=== PATIENT | male | born 1980 | race African-American/Black ===

== ENCOUNTER 2017-11-11 11:29 | Emergency (ER) | payer OTHER ==
[2017-11-11 12:18] LABS: APPEARANCE,URINE Clear (CLEAR); BILIRUBIN,URINE Negative (NEGATIVE); COLOR,URINE Yellow (YELLOW); GLUCOSE, URINE (UA) Negative (NEGATIVE); KETONES,URINE Negative (NEGATIVE); LEUKOCYTE ESTERASE ,URINE Trace (NEGATIVE); NITRATE,URINE Negative (NEGATIVE); OCCULT BLOOD,URINE Trace (NEGATIVE); PH,URINE 6.5 (5.0-8.0); PROTEIN,URINE Negative (NEGATIVE)
[2017-11-11] MEDS ORDERED: CEFTRIAXONE SODIUM 1 GM ONE (12:21)
[2017-11-11] MEDS ORDERED: ONDANSETRON ODT 4 MG TAB ONE (12:21)
[2017-11-11] MEDS ORDERED: LIDOCAINE HCL-MPF 1% 2ML VIAL ONE (12:21)
[2017-11-11] MEDS ORDERED: MORPHINE SULFATE 4 MG/1ML SYG ONE (12:22)
[2017-11-11 12:39] LABS: BACTERIA,URINE Rare /HPF (None Seen); RBC,URINE None Seen /HPF (0-1); SQUAMOUS EPITHELIAL CELL,UR 0-2 /LPF (0-2); WBC,URINE 0-1 /HPF (0-1)
== END 2017-11-11 14:06 | disposition home or self-care (01) ==
LOC: EDH 11:29
DX: R59.0 Localized enlarged lymph nodes (principal); Z98.890 Other specified postprocedural states; Z72.0 Tobacco use
CPT/HCPCS: 76882; 81001; 96372 ×2; 99285; J0696; J2270; J3490

== ENCOUNTER 2017-11-13 08:09 | Inpatient (IN) | payer OTHER ==
[~2017-11-13] VITALS: Ht 167.6 cm; Wt 84.4 kg
[2017-11-13] MEDS ORDERED: MORPHINE SULFATE 4 MG/1ML SYG ONE (09:17)
[2017-11-13 09:51] LABS: APPEARANCE,URINE CLEAR (CLEAR); BILIRUBIN,URINE NEGATIVE (NEGATIVE); GLUCOSE, URINE (UA) NEGATIVE (NEGATIVE); KETONES,URINE NEGATIVE (NEGATIVE); LEUKOCYTE ESTERASE ,URINE SMALL (NEGATIVE); NITRATE,URINE NEGATIVE (NEGATIVE); OCCULT BLOOD,URINE SMALL (NEGATIVE); PROTEIN,URINE NEGATIVE (NEGATIVE); UROBILINOGEN,URINE 0.2 mg/dL (0.2-1.0)
[2017-11-13 09:55] LABS: COLOR,URINE STRAW (YELLOW)
[2017-11-13 09:56] LABS: BASOPHILS % (AUTO) 0.7 % (0.0-5.0); EOSINOPHILS % (AUTO) 4.1 % (0.0-8.0); HEMATOCRIT 36.9 % (42-54); LYMPHOCYTES % (AUTO) 11.7 % (21.0-51.0); MEAN CORPUSCULAR HEMOGLOBIN 30.9 pg (27.0-33.0); MEAN CORPUSCULAR HGB CONC 34.2 g/dL (32.0-36.0); MEAN CORPUSCULAR VOLUME 90.5 fL (79-99); MONOCYTES % (AUTO) 11.6 % (3.0-13.0); NEUTROPHILS % (AUTO) 71.9 % (40.0-77.0); PLATELET COUNT (AUTO) 357 K/uL (130-400); RED BLOOD CELL COUNT(AUTO) 4.08 MIL/uL (4.50-6.20); WHITE BLOOD COUNT (AUTO) 17.5 K/uL (4.8-10.8)
[2017-11-13 10:01] LABS: BACTERIA,URINE None Seen /HPF (None Seen); RBC,URINE 0-1 /HPF (0-1); SQUAMOUS EPITHELIAL CELL,UR Rare /LPF (0-2); WBC,URINE None Seen /HPF (0-1)
[2017-11-13 10:05] LABS: POTASSIUM 4.3 mmol/L (3.5-5.1)
[2017-11-13 10:09] LABS: BILIRUBIN,TOTAL 0.2 mg/dL (0.2-1.0); TOTAL PROTEIN, SERUM 7.6 g/dL (6.0-8.3)
[2017-11-13] MEDS ORDERED: VANCOMYCIN 1GM+NS 250ML 250 ML IV ONE (10:24)
[2017-11-13] MEDS ORDERED: KETOROLAC TROMETHAMINE 30MG/ML ONE (11:05)
[2017-11-13] MEDS ORDERED: CLINDAMYCIN 600 MG/D5% WATER 50 ML IV ONE (12:54)
[2017-11-13] MEDS ORDERED: ACETAMINOPHEN 325 MG TAB ONE (12:55)
[2017-11-13 14:49] VITALS: BP 102/52
[2017-11-13] MEDS ORDERED: MIRT7.5T11 PO (15:51)
[2017-11-13] MEDS ORDERED: DICL1TAB5 PO (15:51)
[2017-11-13] MEDS ORDERED: SULF1TAB42 PO (15:51)
[2017-11-13] MEDS ORDERED: ESCI20TA36 PO (15:51)
[2017-11-13 16:00] VITALS: BP 101/64
[2017-11-13] MEDS ORDERED: VANCOMYCIN 1GM+NS 250ML 250 ML IV SCH (17:15)
[2017-11-13] MEDS ORDERED: ONDANSETRON HCL MDV 20ML 2 MG/ML VIAL IV PRN (17:15)
[2017-11-13] MEDS ORDERED: HYDRALAZINE HCL 20 MG/ML VIAL IV PRN (17:15)
[2017-11-13] MEDS ORDERED: VANCOMYCIN PROTOCOL PER PHARMACY IV PRN (17:15)
[2017-11-13] MEDS ORDERED: DIPHENHYDRAMINE HCL 25 MG CAPSULE PO PRN (17:15)
[2017-11-13] MEDS ORDERED: ACETAMINOPHEN 325 MG TAB PO PRN (17:15)
[2017-11-13] MEDS ORDERED: LACTULOSE 20 GM/30 ML UDCUP PO PRN (17:15)
[2017-11-13] MEDS ORDERED: MEROPENEM 500MG+NS 50ML 50 ML IV SCH (17:15)
[2017-11-13] MEDS ORDERED: COMPOUND IV REFRIGERATED 1 EACH IVSOLN MISC PRN (17:45)
[2017-11-13] MEDS ORDERED: VANCOMYCIN PROTOCOL PER PHARMACY IV SCH (17:45)
[2017-11-13] MEDS: MORPHINE SULFATE 2 MG/ML 1ML SYG IV PRN (18:09)
[2017-11-13] MEDS: MEROPENEM 500 MG VIAL IVP SCH (18:09)
[2017-11-13] MEDS: SODIUM CHLORIDE 0.9% 1000ML 1,000 ML IV SCH (18:13)
[2017-11-13] MEDS: NICOTINE 14 MG/ 24 HR PATCH TD SCH (18:26)
[2017-11-13 19:00] VITALS: BP 115/43
[2017-11-13] MEDS: MIRTAZAPINE 15 MG TABLET PO SCH (21:17)
[2017-11-13] MEDS: CITALOPRAM 20 MG TABLET PO SCH (21:17)
[2017-11-13] MEDS: VANCOMYCIN 1.25 GM in SODIUM CHLORIDE 0.9% 250 ML IV SCH (21:18)
[2017-11-13 23:00] VITALS: BP 106/58
[2017-11-14] MEDS: MEROPENEM 500 MG VIAL IVP SCH ×3 (02:00→20:55)
[2017-11-14 03:00] VITALS: BP 113/65
[2017-11-14] MEDS: SODIUM CHLORIDE 0.9% 1000ML 1,000 ML IV SCH ×3 (03:03→11:31)
[2017-11-14] MEDS: MORPHINE SULFATE 2 MG/ML 1ML SYG IV PRN ×2 (04:31→09:57)
[2017-11-14 08:00] VITALS: BP 105/48
[2017-11-14] MEDS: PANTOPRAZOLE SODIUM 40 MG TABLET.DR PO SCH (08:40)
[2017-11-14] MEDS: CITALOPRAM 20 MG TABLET PO SCH ×2 (08:40→20:33)
[2017-11-14] MEDS: NICOTINE 14 MG/ 24 HR PATCH TD SCH (08:41)
[2017-11-14] MEDS: ENOXAPARIN SODIUM 40 MG/0.4 ML SYRINGE SQ SCH (08:42)
[2017-11-14] MEDS: VANCOMYCIN 1.25 GM in SODIUM CHLORIDE 0.9% 250 ML IV SCH ×2 (08:49→20:31)
[2017-11-14 12:00] VITALS: BP 85/42
[2017-11-14] MEDS ORDERED: NITROGLYCERIN 0.4 MG SL TAB SL PRN (12:30)
[2017-11-14 12:46] LABS: CREATINE KINASE MB < 0.5 ng/mL (0.5-3.6); CREATINE KINASE, TOTAL 178 U/L (21-232); MYOGLOBIN 17 ng/mL (10-92); TROPONIN I < 0.04 ng/mL (0.00-0.06)
[2017-11-14 12:51] LABS: MEAN CORPUSCULAR HEMOGLOBIN 30.6 pg (27.0-33.0); MEAN CORPUSCULAR HGB CONC 33.7 g/dL (32.0-36.0); MEAN CORPUSCULAR VOLUME 90.7 fL (79-99); NUCLEATED RED BLOOD CELLS 0.1 % (0.0-0.19); PLATELET COUNT (AUTO) 404 K/uL (130-400); RED BLOOD CELL COUNT(AUTO) 4.08 MIL/uL (4.50-6.20); RED CELL DISTRIBUTION WIDTH 13.5 % (11.0-15.5); WHITE BLOOD COUNT (AUTO) 16.5 K/uL (4.8-10.8)
[2017-11-14] MEDS: KETOROLAC TROMETHAMINE 30MG/ML IV PRN ×2 (14:55→20:56)
[2017-11-14 16:00] VITALS: BP 115/65
[2017-11-14] MEDS: ACETAMINOPHEN-CODEINE 300/30MG TAB PO PRN (16:37)
[2017-11-14] MEDS ORDERED: IOPAMIDOL-370 75 ML VIAL IV ONE (17:00)
[2017-11-14] MEDS ORDERED: DIATR MEGLU/DIATRIZOATE SODIUM 30 ML BOTTLE ONE (17:00)
[2017-11-14 18:06] LABS: CREATINE KINASE MB < 0.5 ng/mL (0.5-3.6); CREATINE KINASE, TOTAL 110 U/L (21-232); MYOGLOBIN 23 ng/mL (10-92); TROPONIN I < 0.04 ng/mL (0.00-0.06)
[2017-11-14 19:00] VITALS: BP 119/86
[2017-11-14] MEDS: MIRTAZAPINE 15 MG TABLET PO SCH (20:32)
[2017-11-14 23:00] VITALS: BP 113/65
[2017-11-15 00:39] LABS: CREATINE KINASE MB < 0.5 ng/mL (0.5-3.6); CREATINE KINASE, TOTAL 111 U/L (21-232); MYOGLOBIN 18 ng/mL (10-92); TROPONIN I < 0.04 ng/mL (0.00-0.06)
[2017-11-15] MEDS: MEROPENEM 500 MG VIAL IVP SCH ×3 (02:56→18:14)
[2017-11-15] MEDS: KETOROLAC TROMETHAMINE 30MG/ML IV PRN ×3 (02:57→20:58)
[2017-11-15 03:00] VITALS: BP 100/48
[2017-11-15 05:58] LABS: HEMATOCRIT 34.8 % (42-54); MEAN CORPUSCULAR HEMOGLOBIN 30.6 pg (27.0-33.0); MEAN CORPUSCULAR HGB CONC 34.2 g/dL (32.0-36.0); MEAN CORPUSCULAR VOLUME 89.6 fL (79-99); PLATELET COUNT (AUTO) 410 K/uL (130-400); RED BLOOD CELL COUNT(AUTO) 3.88 MIL/uL (4.50-6.20); RED CELL DISTRIBUTION WIDTH 13.2 % (11.0-15.5); WHITE BLOOD COUNT (AUTO) 12.8 K/uL (4.8-10.8)
[2017-11-15 06:05] LABS: CREATININE 0.9 mg/dL (0.5-1.5); POTASSIUM 4.1 mmol/L (3.5-5.1)
[2017-11-15 08:00] VITALS: BP 107/55
[2017-11-15] MEDS: ENOXAPARIN SODIUM 40 MG/0.4 ML SYRINGE SQ SCH (09:00)
[2017-11-15] MEDS: PANTOPRAZOLE SODIUM 40 MG TABLET.DR PO SCH (09:17)
[2017-11-15] MEDS: VANCOMYCIN 1.25 GM in SODIUM CHLORIDE 0.9% 250 ML IV SCH (09:17)
[2017-11-15] MEDS: CITALOPRAM 20 MG TABLET PO SCH ×2 (09:17→20:19)
[2017-11-15] MEDS: NICOTINE 14 MG/ 24 HR PATCH TD SCH (09:18)
[2017-11-15] MEDS: ACETAMINOPHEN-CODEINE 300/30MG TAB PO PRN ×2 (09:23→18:15)
[2017-11-15 11:11] LABS: HEPATITIS A ANTIBODY IGM Negative (Negative); HEPATITIS B CORE IGM Negative (Negative); HEPATITIS Bs ANTIGEN SCREEN P Negative (Negative)
[2017-11-15 12:00] VITALS: BP 118/69
[2017-11-15 16:00] VITALS: BP 136/68
[2017-11-15 19:00] VITALS: BP 134/81
[2017-11-15] MEDS: MIRTAZAPINE 15 MG TABLET PO SCH (20:19)
[2017-11-15] MEDS: VANCOMYCIN 1.5 GM in SODIUM CHLORIDE 0.9% 250 ML IV SCH (20:57)
[2017-11-15 23:00] VITALS: BP 107/54
[2017-11-16] MEDS: MEROPENEM 500 MG VIAL IVP SCH ×3 (02:57→13:09)
[2017-11-16] MEDS: KETOROLAC TROMETHAMINE 30MG/ML IV PRN ×2 (02:57→09:15)
[2017-11-16 03:00] VITALS: BP 132/82
[2017-11-16 05:58] LABS: HEMATOCRIT 34.5 % (42-54); MEAN CORPUSCULAR HEMOGLOBIN 30.5 pg (27.0-33.0); MEAN CORPUSCULAR VOLUME 89.6 fL (79-99); PLATELET COUNT (AUTO) 421 K/uL (130-400); RED BLOOD CELL COUNT(AUTO) 3.85 MIL/uL (4.50-6.20); RED CELL DISTRIBUTION WIDTH 13.2 % (11.0-15.5)
[2017-11-16 06:07] LABS: POTASSIUM 4.1 mmol/L (3.5-5.1)
[2017-11-16 08:00] VITALS: BP 113/59
[2017-11-16] MEDS: NICOTINE 14 MG/ 24 HR PATCH TD SCH (09:00)
[2017-11-16] MEDS: ENOXAPARIN SODIUM 40 MG/0.4 ML SYRINGE SQ SCH (09:00)
[2017-11-16] MEDS: CITALOPRAM 20 MG TABLET PO SCH (09:15)
[2017-11-16] MEDS: VANCOMYCIN 1.5 GM in SODIUM CHLORIDE 0.9% 250 ML IV SCH (09:16)
[2017-11-16] MEDS: PANTOPRAZOLE SODIUM 40 MG TABLET.DR PO SCH (09:17)
[2017-11-16 11:00] VITALS: BP 104/76
[2017-11-16] MEDS: ACETAMINOPHEN-CODEINE 300/30MG TAB PO PRN (13:09)
[2017-11-16 16:00] VITALS: BP 123/82
[2017-11-16] MEDS ORDERED: DOXY100C2 PO (17:18)
[2017-11-16] MEDS ORDERED: ACET1TAB12 PO (17:18)
[2017-11-16] MEDS ORDERED: AMOX-426 PO (17:18)
== END 2017-11-16 18:05 | disposition home or self-care (01) | DRG 603 ==
LOC: EDH 08:09 → EDHIP 08:10 → 3BH 14:31
PROVIDERS: ADMIT Family Medicine; ATTEND Family Medicine
DX: L03.115 Cellulitis of right lower limb (principal); E11.9 Type 2 diabetes mellitus without complications; F10.10 Alcohol abuse, uncomplicated; F14.10 Cocaine abuse, uncomplicated; R59.0 Localized enlarged lymph nodes; F19.90 Other psychoactive substance use, unspecified, uncomplicated; F17.210 Nicotine dependence, cigarettes, uncomplicated; F32.9 Major depressive disorder, single episode, unspecified; Z83.3 Family history of diabetes mellitus
CPT/HCPCS: 36415; 74178; 80048; 80053; 80074; 80202; 81001; 82550; 82553; 83874; 84484; 85025; 85027; 86000; 86701; 87040; 87390; 93005; A4218; J1650; J1885; J2185; J2270; J3370; J3490; J7030; Q9963; Q9967

== ENCOUNTER 2018-02-08 11:42 | Inpatient (IN) | payer OTHER ==
[~2018-02-08] VITALS: Ht 167.6 cm; Wt 86.6 kg
[~2018-02-08 11:42] MED LIST: ACET1TAB12 PO; AMOX-426 PO; DICL1TAB5 PO; DOXY100C2 PO; ESCI20TA36 PO; MIRT7.5T11 PO
[2018-02-08 12:21] LABS: BASOPHILS % (AUTO) 0.7 % (0.0-5.0); EOSINOPHILS % (AUTO) 4.1 % (0.0-8.0); HEMATOCRIT 42.5 % (42-54); LYMPHOCYTES % (AUTO) 17.9 % (21.0-51.0); MEAN CORPUSCULAR HEMOGLOBIN 30.1 pg (27.0-33.0); MEAN CORPUSCULAR HGB CONC 33.9 g/dL (32.0-36.0); MEAN CORPUSCULAR VOLUME 88.6 fL (79-99); MONOCYTES % (AUTO) 7.7 % (3.0-13.0); NEUTROPHILS % (AUTO) 69.6 % (40.0-77.0); PLATELET COUNT (AUTO) 414 K/uL (130-400); RED BLOOD CELL COUNT(AUTO) 4.79 MIL/uL (4.50-6.20); RED CELL DISTRIBUTION WIDTH 14.8 % (11.0-15.5); WHITE BLOOD COUNT (AUTO) 17.3 K/uL (4.8-10.8)
[2018-02-08 12:23] LABS: APPEARANCE,URINE Clear (CLEAR); BILIRUBIN,URINE Negative (NEGATIVE); COLOR,URINE Yellow (YELLOW); GLUCOSE, URINE (UA) Negative (NEGATIVE); KETONES,URINE Negative (NEGATIVE); LEUKOCYTE ESTERASE ,URINE Trace (NEGATIVE); NITRATE,URINE Negative (NEGATIVE); OCCULT BLOOD,URINE Negative (NEGATIVE); PROTEIN,URINE Negative (NEGATIVE); UROBILINOGEN,URINE 0.2 mg/dL (0.2-1.0)
[2018-02-08 12:30] LABS: CARBON DIOXIDE 32 mmol/L (21-32); CHLORIDE 102 mmol/L (101-111); CREATININE 1.1 mg/dL (0.5-1.5); GLOMERULAR FILTR. RATE CALC 97 mL/min (>60); GLUCOSE,RANDOM 95 mg/dL (70-105); POTASSIUM 3.8 mmol/L (3.5-5.1); SODIUM SERUM 140 mmol/L (136-145); UREA NITROGEN, BLOOD 10 mg/dL (7-18)
[2018-02-08 12:30] LABS: AMPHET/METH SCREEN,URINE POSITIVE (NEGATIVE); BARBITURATE SCREEN, URINE NEGATIVE (NEGATIVE); BENZODIAZEPINES SCREEN,URINE NEGATIVE (NEGATIVE); CANNABINOID SCREEN,URINE NEGATIVE (NEGATIVE); COCAINE SCREEN,URINE POSITIVE (NEGATIVE); OPIATE SCREEN,URINE NEGATIVE (NEGATIVE); PHENCYCLIDINE SCREEN,URINE NEGATIVE (NEGATIVE)
[2018-02-08 12:34] LABS: ALANINE AMINOTRANSFERASE 36 U/L (12-78); ALBUMIN 3.6 g/dL (3.5-5.0); ASPARTATE AMINOTRANSFERASE 33 U/L (10-37); BILIRUBIN,TOTAL 0.2 mg/dL (0.2-1.0); TOTAL PROTEIN, SERUM 7.9 g/dL (6.0-8.3)
[2018-02-08 12:53] LABS: ACETAMINOPHEN < 1 mcg/mL (10-29); ALCOHOL, BLOOD < 3 mg/dL (0-10)
[2018-02-08 13:20] LABS: BACTERIA,URINE Rare /HPF (None Seen); RBC,URINE 0-1 /HPF (0-1); SQUAMOUS EPITHELIAL CELL,UR Rare /HPF (0-2); WBC,URINE 0-1 /HPF (0-1)
[2018-02-08 14:30] LABS: BASOPHILS % (AUTO) 0.8 % (0.0-5.0); EOSINOPHILS % (AUTO) 4.7 % (0.0-8.0); LYMPHOCYTES % (AUTO) 16.6 % (21.0-51.0); MEAN CORPUSCULAR HEMOGLOBIN 30.2 pg (27.0-33.0); MEAN CORPUSCULAR HGB CONC 33.7 g/dL (32.0-36.0); MEAN CORPUSCULAR VOLUME 89.4 fL (79-99); MONOCYTES % (AUTO) 6.9 % (3.0-13.0); PLATELET COUNT (AUTO) 429 K/uL (130-400); RED BLOOD CELL COUNT(AUTO) 4.92 MIL/uL (4.50-6.20); RED CELL DISTRIBUTION WIDTH 14.8 % (11.0-15.5); WHITE BLOOD COUNT (AUTO) 16.9 K/uL (4.8-10.8)
[2018-02-08] MEDS ORDERED: IPRATROPIUM/ALBUTEROL SULFATE 3 ML SOLUTION IH ONE (14:30)
[2018-02-08] MEDS ORDERED: CEFTRIAXONE SODIUM 1 GM ONE (15:22)
[2018-02-08] MEDS ORDERED: AZITHROMYCIN 250 MG TABLET PO ONE (15:23)
[2018-02-08 19:37] VITALS: BP 129/85
[2018-02-08] MEDS ORDERED: QUET100T PO (20:40)
[2018-02-08] MEDS ORDERED: PRAZ1CAP5 PO (20:40)
[2018-02-08] MEDS ORDERED: CEFTRIAXONE SODIUM 1 GM IVP SCH (21:00)
[2018-02-08] MEDS ORDERED: IPRATROPIUM/ALBUTEROL SULFATE 3 ML SOLUTION IH PRN (21:00)
[2018-02-08] MEDS ORDERED: ACETAMINOPHEN 325 MG TAB PO PRN (21:00)
[2018-02-08] MEDS ORDERED: AZITHROMYCIN 500MG+NS 250ML 250 ML IV SCH (21:00)
[2018-02-08] MEDS ORDERED: CEFTRIAXONE 1GM/D5W 50ML 50 ML IV SCH (21:00)
[2018-02-08] MEDS: FAMOTIDINE/PF 20 MG/2 ML VIAL IV SCH (21:30)
[2018-02-08] MEDS ORDERED: LACTATED RINGERS 1000ML 1,000 ML IV SCH ×2 (21:58→22:00)
[2018-02-08] MEDS ORDERED: LACTATED RINGERS 1000ML 1,000 ML IV ONE (22:23)
[2018-02-08] MEDS: GUAIFENESIN-DM 200/20 MG 10 ML PO PRN (22:27)
[2018-02-08 23:43] VITALS: BP 118/74
[2018-02-09 03:47] VITALS: BP 108/64
[2018-02-09 06:04] LABS: HEMATOCRIT 39.6 % (42-54); MEAN CORPUSCULAR HEMOGLOBIN 30.1 pg (27.0-33.0); MEAN CORPUSCULAR VOLUME 88.6 fL (79-99); PLATELET COUNT (AUTO) 389 K/uL (130-400); RED BLOOD CELL COUNT(AUTO) 4.47 MIL/uL (4.50-6.20); RED CELL DISTRIBUTION WIDTH 14.5 % (11.0-15.5); WHITE BLOOD COUNT (AUTO) 12.4 K/uL (4.8-10.8)
[2018-02-09 06:16] LABS: CREATININE 1.1 mg/dL (0.5-1.5); POTASSIUM 3.9 mmol/L (3.5-5.1)
[2018-02-09 07:00] VITALS: BP 98/55
[2018-02-09] MEDS: FAMOTIDINE/PF 20 MG/2 ML VIAL IV SCH ×2 (09:13→21:01)
[2018-02-09] MEDS: ENOXAPARIN SODIUM 40 MG/0.4 ML SYRINGE SQ SCH (09:14)
[2018-02-09 16:00] VITALS: BP 127/81
[2018-02-09 20:00] VITALS: BP 118/78
[2018-02-09] MEDS: CLINDAMYCIN 300 MG/D5W 50 ML 50 ML IV SCH (21:01)
[2018-02-09] MEDS ORDERED: CYCL10TA7 PO (21:03)
[2018-02-10] VITALS (7 sets, daily range): BP systolic 101–141; BP diastolic 54–77
[2018-02-10] MEDS: CLINDAMYCIN 300 MG/D5W 50 ML 50 ML IV SCH ×3 (08:21→21:54)
[2018-02-10] MEDS: FAMOTIDINE/PF 20 MG/2 ML VIAL IV SCH ×2 (08:21→21:54)
[2018-02-10] MEDS: ENOXAPARIN SODIUM 40 MG/0.4 ML SYRINGE SQ SCH (08:28)
[2018-02-10] MEDS: TRAMADOL HCL 50 MG TABLET PO PRN (18:31)
[2018-02-11 00:20] VITALS: BP 105/60
[2018-02-11 03:56] VITALS: BP 102/67
[2018-02-11 04:49] LABS: HEMATOCRIT 43.7 % (42-54); MEAN CORPUSCULAR HEMOGLOBIN 30.2 pg (27.0-33.0); MEAN CORPUSCULAR HGB CONC 33.9 g/dL (32.0-36.0); MEAN CORPUSCULAR VOLUME 89.1 fL (79-99); NUCLEATED RED BLOOD CELLS 0.2 % (0.0-0.19); PLATELET COUNT (AUTO) 453 K/uL (130-400); RED CELL DISTRIBUTION WIDTH 14.5 % (11.0-15.5); WHITE BLOOD COUNT (AUTO) 11.5 K/uL (4.8-10.8)
[2018-02-11 05:03] LABS: CREATININE 1.1 mg/dL (0.5-1.5); POTASSIUM 3.8 mmol/L (3.5-5.1)
[2018-02-11 07:10] VITALS: BP 112/68
[2018-02-11] MEDS: ENOXAPARIN SODIUM 40 MG/0.4 ML SYRINGE SQ SCH (08:13)
[2018-02-11] MEDS: CLINDAMYCIN 300 MG/D5W 50 ML 50 ML IV SCH ×2 (08:13→12:48)
[2018-02-11] MEDS: FAMOTIDINE/PF 20 MG/2 ML VIAL IV SCH ×2 (08:14→22:05)
[2018-02-11 11:00] VITALS: BP 107/69
[2018-02-11] MEDS: TRAMADOL HCL 50 MG TABLET PO PRN (12:48)
[2018-02-11 14:52] VITALS: BP 115/74
[2018-02-11] MEDS: AMOXICILLIN 500 MG CAPSULE PO SCH (15:30)
[2018-02-11] MEDS: CYCLOBENZAPRINE HCL 10 MG TABLET PO SCH ×2 (15:31→22:05)
[2018-02-11 19:14] VITALS: BP 115/69
[2018-02-11] MEDS ORDERED: PRAZOSIN HCL 1 MG PO SCH (21:00)
[2018-02-11] MEDS ORDERED: QUETIAPINE FUMARATE 100 MG TAB PO SCH (21:00)
[2018-02-11] MEDS: CITALOPRAM 20 MG TABLET PO SCH (22:05)
[2018-02-11] MEDS: DOXYCYCLINE HYCLATE 100 MG TABLET PO SCH (22:05)
[2018-02-12] MEDS: AMOXICILLIN 500 MG CAPSULE PO SCH ×2 (00:54→06:35)
[2018-02-12 03:47] VITALS: BP 102/69
[2018-02-12 07:13] VITALS: BP 107/66
[2018-02-12] MEDS: CYCLOBENZAPRINE HCL 10 MG TABLET PO SCH (09:31)
[2018-02-12] MEDS: DOXYCYCLINE HYCLATE 100 MG TABLET PO SCH (09:31)
[2018-02-12] MEDS: CITALOPRAM 20 MG TABLET PO SCH (09:31)
[2018-02-12] MEDS: ENOXAPARIN SODIUM 40 MG/0.4 ML SYRINGE SQ SCH (09:32)
[2018-02-12] MEDS: FAMOTIDINE/PF 20 MG/2 ML VIAL IV SCH (09:32)
[2018-02-12 11:52] VITALS: BP 116/62
== END 2018-02-12 15:10 | disposition home or self-care (01) | DRG 603 ==
LOC: EDH 11:42 → OBSVTOIN 11:43 → EDHIP 11:43 → EEVIPCON 11:43 → 3CH 19:39
PROVIDERS: ADMIT Internal Medicine Nephrology; ATTEND Internal Medicine Nephrology
DX: L03.315 Cellulitis of perineum (principal); R45.851 Suicidal ideations; R59.0 Localized enlarged lymph nodes; F20.9 Schizophrenia, unspecified; L73.2 Hidradenitis suppurativa; L05.91 Pilonidal cyst without abscess; F14.90 Cocaine use, unspecified, uncomplicated; F17.200 Nicotine dependence, unspecified, uncomplicated; F41.9 Anxiety disorder, unspecified; F32.9 Major depressive disorder, single episode, unspecified; F12.90 Cannabis use, unspecified, uncomplicated; F31.9 Bipolar disorder, unspecified; J45.909 Unspecified asthma, uncomplicated; Z83.3 Family history of diabetes mellitus
CPT/HCPCS: 36415; 71045; 80048; 80053; 80305; 81001; 85025; 85027; 87070; 87076; 87077; 87186; 94640; 94664; G0480; G0481; J0696; J1650; J3490; J7120

== ENCOUNTER → 2018-07-16 | Emergency (ER) | payer OTHER ==
[~2018-07-16] MED LIST changes: -ACET1TAB12 PO; -AMOX-426 PO; +CYCL10TA7 PO; -DICL1TAB5 PO; -DOXY100C2 PO; +IBUPROFEN 600 MG TABLET ONE; +IBUPROFEN 800 MG TAB ONE; -MIRT7.5T11 PO; +PRAZ1CAP5 PO; +QUET100T PO
[2018-07-16 19:24] LABS: CARBON DIOXIDE 26 mmol/L (21-32); CHLORIDE 107 mmol/L (101-111); GLOMERULAR FILTR. RATE CALC 108 mL/min (>60); GLUCOSE,RANDOM 88 mg/dL (70-105); SODIUM SERUM 142 mmol/L (136-145); UREA NITROGEN, BLOOD 7 mg/dL (7-18)
[2018-07-16 19:28] LABS: ALANINE AMINOTRANSFERASE 28 U/L (12-78); ALBUMIN 3.1 g/dL (3.5-5.0); ALCOHOL, BLOOD 50 mg/dL (0-10); ASPARTATE AMINOTRANSFERASE 37 U/L (10-37); BILIRUBIN,TOTAL 0.3 mg/dL (0.2-1.0); SALICYLATE 4.5 mg/dL (2.8-20.0); TOTAL PROTEIN, SERUM 6.5 g/dL (6.0-8.3)
[2018-07-16 19:36] LABS: BASOPHILS % (AUTO) 0.9 % (0.0-5.0); EOSINOPHILS % (AUTO) 7.5 % (0.0-8.0); HEMATOCRIT 44.3 % (42-54); LYMPHOCYTES % (AUTO) 23.6 % (21.0-51.0); MEAN CORPUSCULAR HEMOGLOBIN 30.1 pg (27.0-33.0); MEAN CORPUSCULAR HGB CONC 33.1 g/dL (32.0-36.0); MONOCYTES % (AUTO) 5.9 % (3.0-13.0); NEUTROPHILS % (AUTO) 62.1 % (40.0-77.0); NUCLEATED RED BLOOD CELLS 0.2 % (0.0-0.19); PLATELET COUNT (AUTO) 298 K/uL (130-400); RED BLOOD CELL COUNT(AUTO) 4.87 MIL/uL (4.50-6.20); RED CELL DISTRIBUTION WIDTH 13.9 % (11.0-15.5); WHITE BLOOD COUNT (AUTO) 12.6 K/uL (4.8-10.8)
[2018-07-16 20:00] LABS: ACETAMINOPHEN < 1 mcg/mL (10-29)
[2018-07-16 22:56] LABS: BILIRUBIN,URINE NEGATIVE (NEGATIVE); COLOR,URINE YELLOW (YELLOW); GLUCOSE, URINE (UA) NEGATIVE (NEGATIVE); KETONES,URINE 5 mg/dL (NEGATIVE); LEUKOCYTE ESTERASE ,URINE MODERATE (NEGATIVE); NITRATE,URINE NEGATIVE (NEGATIVE); OCCULT BLOOD,URINE NEGATIVE (NEGATIVE); PH,URINE 6.5 (5.0-8.0); PROTEIN,URINE NEGATIVE (NEGATIVE); UROBILINOGEN,URINE 0.2 mg/dL (0.2-1.0)
[2018-07-16 22:58] LABS: APPEARANCE,URINE SLIGHTLY CLOUDY (CLEAR)
[2018-07-16 23:00] LABS: RBC,URINE 0-1 /HPF (0-1)
[2018-07-16 23:01] LABS: BACTERIA,URINE None Seen /HPF (None Seen); SQUAMOUS EPITHELIAL CELL,UR Rare /HPF (0-2)
[2018-07-16 23:05] LABS: AMPHET/METH SCREEN,URINE NEGATIVE (NEGATIVE); BARBITURATE SCREEN, URINE NEGATIVE (NEGATIVE); BENZODIAZEPINES SCREEN,URINE NEGATIVE (NEGATIVE); CANNABINOID SCREEN,URINE NEGATIVE (NEGATIVE); COCAINE SCREEN,URINE POSITIVE (NEGATIVE); OPIATE SCREEN,URINE NEGATIVE (NEGATIVE); PHENCYCLIDINE SCREEN,URINE NEGATIVE (NEGATIVE)
== END ==
LOC: EDH 18:09
DX: F32.9 Major depressive disorder, single episode, unspecified (principal); F29 Unspecified psychosis not due to a substance or known physiological condition; F41.9 Anxiety disorder, unspecified; J45.909 Unspecified asthma, uncomplicated; Z85.72 Personal history of non-Hodgkin lymphomas; Z87.01 Personal history of pneumonia (recurrent)
CPT/HCPCS: 36415 ×2; 80053; 80305; 81001; 85025; 94760; 99285; G0480 ×3; G0481